=== PATIENT | female | born 1960 | race Two or more races ===

== ENCOUNTER 2021-03-15 17:01 | Emergency (ER) | payer OTHER ==
[~2021-03-15] VITALS: Ht 162.6 cm; Wt 62.1 kg
[2021-03-15 17:23] VITALS: BP 142/83
--- NOTE | 2021-03-15 17:23 | NUR ---
PT BEING ASSESSED BY MD SHANKS IN TRIAGE.
[2021-03-15] MEDS ORDERED: HYDROcodone/APAP 5/325 MG 1 TAB TAB PO ONE (17:25)
--- NOTE | 2021-03-15 17:33 | NUR ---
X-Ray VIA WHEELCHAIR
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
--- NOTE | 2021-03-15 18:50 | NUR ---
PT LEFT WITHOUT RESULTS OR PAPERWORK.
[2021-03-15] MEDS ORDERED: ACET-10509 PO (18:55)
[2021-03-15] MEDS ORDERED: LIDO1ADH47 TP (18:55)
[2021-03-15] MEDS ORDERED: METH-1681 PO (18:55)
== END 2021-03-15 18:50 | disposition home or self-care (01) ==
LOC: MED 17:01
DX: S16.1XXA Strain of muscle, fascia and tendon at neck level, initial encounter (principal); S39.012A Strain of muscle, fascia and tendon of lower back, initial encounter; Z88.0 Allergy status to penicillin; Z88.6 Allergy status to analgesic agent; V98.8XXA Other specified transport accidents, initial encounter; Y93.89 Activity, other specified; Y92.89 Other specified places as the place of occurrence of the external cause; Y99.8 Other external cause status
CPT/HCPCS: 72050; 72072; 72110; 99284